=== PATIENT | male | born 1970 | race Caucasian/White ===

== ENCOUNTER 2017-01-12 14:24 | Emergency (ER) | payer SELFPAY ==
[2017-01-12 14:29] VITALS: BP 129/86
[2017-01-12] MEDS ORDERED: LIDOCAINE 5% (700 MG) TRANSDERMAL ADH..PATCH TP ONE (15:04)
[2017-01-12] MEDS ORDERED: IBUPROFEN 800 MG TABLET PO ONE (15:04)
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
[2017-01-12 16:11] LABS: AMORPHOUS SEDIMENT,URINE TRACE /HPF; APPEARANCE,URINE CLOUDY; BILIRUBIN,URINE NEGATIVE (NEGATIVE); GLUCOSE, URINE NEGATIVE (NEGATIVE); KETONES,URINE NEGATIVE (NEGATIVE); LEUKOCYTE ESTERASE,URINE NEGATIVE (NEGATIVE); NITRITE,URINE NEGATIVE (NEGATIVE); PROTEIN,URINE NEGATIVE (NEGATIVE); URINE SPECIFIC GRAVITY 1.015
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
== END 2017-01-12 16:50 | disposition home or self-care (01) ==
LOC: ER 14:24
DX: S16.1XXA Strain of muscle, fascia and tendon at neck level, initial encounter (principal); S09.90XA Unspecified injury of head, initial encounter; R07.81 Pleurodynia; M54.5 Low back pain; F17.200 Nicotine dependence, unspecified, uncomplicated; V94.9XXA Unspecified water transport accident, initial encounter
CPT/HCPCS: 70450; 72125; 81001; 99284

== ENCOUNTER 2019-08-17 10:14 | Emergency (ER) | payer SELFPAY ==
--- NOTE | 2019-08-17 10:48 | ER Document Report ---
ED Medical Screen (RME) - General Chief Complaint: Abdominal Pain Stated Complaint: ABDOMINAL PAIN Time Seen by Provider: 08/17/19 10:38 Mode of Arrival: Ambulatory Information source: Patient Notes: 48-year-old male presents emergency department with complaints of inguinal swelling for the past couple months. Also reports swelling to his umbilical area that started a couple days ago after he lifted a heavy oxygen bottle. Patient also reports problems with constipation the past 2 days. Patient also reports he had some serious chest pressure the last couple days but he took Maalox in the pain went away. Denies history of cardiac disease. Reports he does not take medication for anything. Denies fever and vomiting diarrhea. Reports he did have a very tiny bowel movement this morning which bothers him because he usually has 2 bowel movements a day. Inguinal swelling noted soft. No abdominal swelling appreciated. No pain with palpation I have greeted and performed a rapid initial assessment of this patient. A comprehensive ED assessment and evaluation of the patient, analysis of test results and completion of the medical decision making process will be conducted by additional ED providers. TRAVEL OUTSIDE OF THE [place] IN LAST 30 DAYS: No - Related Data Allergies/Adverse Reactions: No Known Allergies Allergy (Verified 08/17/19 10:39) Past Medical History Renal/ Medical History: Denies: Hx Peritoneal Dialysis Past Surgical History: Reports: Hx Orthopedic Surgery Physical Exam - Vital signs Vitals: Temp Pulse Resp BP Pulse Ox 98.5 F 66 16 118/84 98 08/17/19 10:38 08/17/19 10:38 08/17/19 10:38 08/17/19 10:38 08/17/19 10:38 Course - Vital Signs Vital signs: Temp Pulse Resp BP Pulse Ox 98.5 F 66 16 118/84 98 08/17/19 10:38 08/17/19 10:38 08/17/19 10:38 08/17/19 10:38 08/17/19 10:38
[2019-08-17 11:35] LABS: APPEARANCE,URINE CLEAR; BILIRUBIN,URINE NEGATIVE (NEGATIVE); COLOR,URINE YELLOW; GLUCOSE, URINE NEGATIVE (NEGATIVE); KETONES,URINE NEGATIVE (NEGATIVE); LEUKOCYTE ESTERASE,URINE NEGATIVE (NEGATIVE); NITRITE,URINE NEGATIVE (NEGATIVE); PROTEIN,URINE NEGATIVE (NEGATIVE); UROBILINOGEN,URINE NEGATIVE mg/dL (<2.0)
[2019-08-17 11:39] LABS: ABSOLUTE EOSINOPHILS # (AUTO) 0.2 10^3/uL (0.0-0.6); ABSOLUTE LYMPHOCYTES (AUTO) 1.6 10^3/uL (0.5-4.7); ABSOLUTE MONOCYTES (AUTO) 0.5 10^3/uL (0.1-1.4); ABSOLUTE NEUT (AUTO) 3.8 10^3/uL (1.7-8.2); BASOPHILS % (AUTO) 0.7 % (0-2); EOSINOPHILS % (AUTO) 3.8 % (0-6); HEMATOCRIT 48.5 % (37.9-51.0); HEMOGLOBIN 17.1 g/dL (13.5-17.0); LYMPHOCYTES % (AUTO) 25.5 % (13-45); MEAN CORPUSCULAR HEMOGLOBIN 30.9 pg (27.0-33.4); MEAN CORPUSCULAR HGB CONC 35.2 g/dL (32.0-36.0); MEAN CORPUSCULAR VOLUME 88 fl (80-97); MONOCYTES % (AUTO) 7.9 % (3-13); PLATELET COUNT 215 10^3/uL (150-450); RED BLOOD COUNT 5.53 10^6/uL (4.35-5.55); RED CELL DISTRIBUTION WIDTH 13.2 % (11.5-14.0); SEGMENTED NEUTROPHILS % (AUTO) 62.1 % (42-78); TOTAL CELLS COUNTED % (AUTO) 100 %; WHITE BLOOD COUNT 6.2 10^3/uL (4.0-10.5)
--- NOTE | 2019-08-17 11:39 | RADIOLOGY REPORT (SQ) ---
EXAM DESCRIPTION: KUB/ABDOMEN (SINGLE VIEW) COMPLETED DATE/TIME: 08/17/2019 11:26 am REASON FOR STUDY: abd pain constipation COMPARISON: None. NUMBER OF VIEWS: One view. TECHNIQUE: Supine radiographic image of the abdomen acquired. LIMITATIONS: None. FINDINGS: BOWEL GAS PATTERN: Normal bowel gas pattern. No dilated loops. CALCIFICATIONS: No suspicious calcifications. SOFT TISSUES: No gross mass or suggestion of organomegaly. HARDWARE: None in the abdomen. BONES: Asymmetric degenerative changes involving the left hip with diffuse soft tissue heterotopic ca lcification. OTHER: No other significant finding. IMPRESSION: NO RADIOGRAPHIC EVIDENCE FOR ACUTE ABDOMINAL DISEASE. TECHNICAL DOCUMENTATION: JOB ID: [id number] 2010 [employer]- All Rights Reserved Reading location - IP/workstation name: [email or web address]
[2019-08-17 11:47] LABS: ADD MANUAL MICROSCOPIC YES
[2019-08-17 11:56] LABS: ALBUMIN 4.6 g/dL (3.5-5.0); ALKALINE PHOSPHATASE 52 U/L (38-126); ANION GAP 9 (5-19); ASPARTATE AMINO TRANSFERASE 69 U/L (17-59); BILIRUBIN,DIRECT 0.1 mg/dL (0.0-0.4); BILIRUBIN,TOTAL 0.9 mg/dL (0.2-1.3); BLOOD UREA NITROGEN 11 mg/dL (7-20); CALCIUM 9.3 mg/dL (8.4-10.2); CARBON DIOXIDE 29 mmol/L (22-30); CHLORIDE 103 mmol/L (98-107); POTASSIUM 3.9 mmol/L (3.6-5.0); TOTAL PROTEIN 8.1 g/dL (6.3-8.2)
[2019-08-17 12:21] LABS: GLUCOSE 65 mg/dL (75-110)
--- NOTE | 2019-08-17 12:47 | RADIOLOGY REPORT (SQ) ---
EXAM DESCRIPTION: U/S ABDOMEN LIMITED W/O DOP COMPLETED DATE/TIME: 08/17/2019 12:36 pm REASON FOR STUDY: eval hernia inguinal and abdominal COMPARISON: None. TECHNIQUE: Dynamic and static grayscale images acquired of the localized site of clinical concern an d recorded on PACS. Additional selected color Doppler and spectral images recorded. SITE OF CONCERN: Left inguinal region LIMITATIONS: None. FINDINGS: SKIN AND SUBCUTANEOUS TISSUES: No masses. No fluid collections. No edema. No foreign alberta s. DEEP SOFT TISSUES/MUSCLES: No masses. No fluid collections. No edema. VASCULAR: No increased or decreased vascularity. No occlusions. OTHER: No other significant finding. IMPRESSION: NO SOFT TISSUE MASS, FLUID COLLECTION, OR FOREIGN BODY. NO EVIDENCE OF HERNIA. TECHNICAL DOCUMENTATION: JOB ID: [id number] 2010 [employer]- All Rights Reserved Reading location - IP/workstation name: [email or web address]
--- NOTE | 2019-08-17 13:12 | ER Document Report ---
ED General - General Chief Complaint: Lower Abdominal Pain Stated Complaint: ABDOMINAL PAIN Time Seen by Provider: 08/17/19 10:38 Mode of Arrival: Ambulatory TRAVEL OUTSIDE OF THE [place] IN LAST 30 DAYS: No - HPI Notes: Chief complaint: Abdominal pain 48-year-old male states that he has been doing some heavy lifting within the last several days on his job and he is developed discomfort in the left lower quadrant of his abdomen aggravated by movement and wonders if he might have a hernia. Patient also says that he has been having some constipation. He additionally reports that he had belching and heartburn several days ago with some burning in the subxiphoid area. He is taking no prescription medications. He has no known allergies. He has had no abdominal surgery. He consumes occasional social alcohol. He smokes about a pack and half cigarettes per day. Denies any known history of peptic ulcer disease. - Related Data Allergies/Adverse Reactions: No Known Allergies Allergy (Verified 08/17/19 10:39) Past Medical History - General Information source: Patient - Social History Smoking Status: Current Every Day Smoker Chew tobacco use (# tins/day): No Frequency of alcohol use: Occasional Drug Abuse: None Family History: Reviewed & Not Pertinent Patient has suicidal ideation: No Patient has homicidal ideation: No Renal/ Medical History: Denies: Hx Peritoneal Dialysis Past Surgical History: Reports: Hx Orthopedic Surgery Review of Systems - Review of Systems Notes: Constitutional: Weight stable. Negative for fever. HENT: Negative for sore throat. Eyes: Negative for visual changes. Cardiovascular: Negative for chest pain. Respiratory: Negative for shortness of breath. Gastrointestinal: As per HPI. Genitourinary: Negative for dysuria, hematuria. Musculoskeletal: Negative for back pain. Skin: Negative for rash. Neurological: Negative for headaches, weakness or numbness. 10 point ROS negative except as marked above and in HPI. Physical Exam - Vital signs Vitals: Temp Pulse Resp BP Pulse Ox 98.5 F 66 16 118/84 98 08/17/19 10:38 08/17/19 10:38 08/17/19 10:38 08/17/19 10:38 08/17/19 10:38 - Notes Notes: GENERAL: Male patient appearing approximately stated age in no acute distress. SKIN: Good turgor no rashes. HEAD: Normocephalic atraumatic. EYES: PERRLA. EOMI. Conjunctivae and sclerae clear. EARS: CANALS AND TMS CLEAR. NOSE: CLEAR. MOUTH: Moist mucosa. Good dentition. No stridor or edema. No drooling. NECK: Supple. No masses or thyromegaly. No adenopathy. Carotids 2+ without bruits. No JVD. BACK: Symmetrical without tenderness. CHEST: Respirations unlabored. Breath sounds clear and symmetrical. HEART: Regular rhythm. No murmur gallop or rub. ABDOMEN: Muscular tenderness abdominal wall left lower quadrant. No visible ecchymoses. Soft without masses, organomegaly or rebound. Bowel sounds normally active. No bruits. GENITALIA: Deferred. EXTREMITIES: No edema. No calf tenderness. Cap refill less than 1.5 seconds. Dorsalis pedis and posterior tibial pulses 3+ and symmetrical. NEUROLOGICAL: GCS 15. Alert and oriented x3. Normal gait. Fluent speech. Cranial nerves II through XII intact. Sensorimotor and cerebellar normal. Normal tone. PSYCHIATRIC: Appropriate affect. Course - Re-evaluation Re-evalutation: 08/17/19 13:09 Patient is polycythemic related to his cigarette smoking. Chemistry profile is remarkable for some elevation of transaminase values consistent with alcohol use. Abdominal ultrasound and acute abdominal series normal per radiologist. I recommended discontinuation of alcohol and tobacco. I will give him some MiraLAX and refer him to a primary care doctor for follow-up. Also I will place him on some naproxen and advised him to restrict his lifting for a few days. 08/17/19 13:10 - Vital Signs Vital signs: Temp Pulse Resp BP Pulse Ox 98.5 F 66 16 118/84 98 08/17/19 10:38 08/17/19 10:38 08/17/19 10:38 08/17/19 10:38 08/17/19 10:38 - Laboratory Result Diagrams: 08/17/19 10:55 08/17/19 10:55 Laboratory results interpreted by me: 08/17/19 08/17/19 10:55 10:55 Hgb 17.1 H Glucose 65 L AST 69 H ALT 103 H - Diagnostic Test Radiology reviewed: Reports reviewed Discharge - Discharge Clinical Impression: Muscular strain abdominal wall Condition: Stable Disposition: HOME, SELF-CARE Additional Instructions: Restrict intake of tobacco and alcohol. Take prescribed medication. No lifting over 10 pounds for the next 5 to 7 days. Follow-up with referral physician. Prescriptions: Polyethylene Glycol 3350 [Miralax] 1 cap PO DAILY #527 powder Naproxen 500 mg PO BID PRN 7 Days #14 tablet PRN Reason: Forms: Smoking Cessation Education
[2019-08-17 13:55] VITALS: BP 162/82
--- NOTE | 2019-08-17 17:25 | EKG REPORT ---
SEVERITY:- NORMAL ECG - SINUS RHYTHM : Confirmed by: Dharmesh Rascon 17-Aug-2019 17:24:21
== END 2019-08-17 13:55 | disposition home or self-care (01) ==
LOC: ER 10:14
DX: S39.011A Strain of muscle, fascia and tendon of abdomen, initial encounter (principal); R10.32 Left lower quadrant pain; F17.210 Nicotine dependence, cigarettes, uncomplicated; X58.XXXA Exposure to other specified factors, initial encounter
CPT/HCPCS: 36415; 74018; 76705; 80053; 81001; 85025; 93005; 93010; 99284